=== PATIENT | female | born 1955 | race Caucasian/White ===

== ENCOUNTER 2023-06-16 08:10 | Day surgery (SDC) | payer MEDICARE ==
[~2023-06-16 08:10] MED LIST: Sodium Chloride 0.9% 10 ML Syringe FLUSH PRN
== END 2023-06-16 09:42 | disposition home or self-care (01) ==
LOC: JP.SDS 08:10
PROVIDERS: ATTEND Ophthalmology
DX: H26.9 Unspecified cataract (principal); I65.23 Occlusion and stenosis of bilateral carotid arteries; F17.200 Nicotine dependence, unspecified, uncomplicated; Z85.3 Personal history of malignant neoplasm of breast; Z88.5 Allergy status to narcotic agent
CPT/HCPCS: 66984; J3490

== ENCOUNTER 2023-06-30 08:18 | Day surgery (SDC) | payer MEDICARE ==
[2023-06-30] MEDS ORDERED: Sodium Chloride 0.9% 10 ML Syringe FLUSH PRN (09:30)
== END 2023-06-30 09:57 | disposition home or self-care (01) ==
LOC: JP.SDS 08:18
PROVIDERS: ATTEND Ophthalmology
DX: H26.9 Unspecified cataract (principal)
CPT/HCPCS: 66984; V2632

== ENCOUNTER 2024-10-09 16:32 | Emergency (ER) | payer OTHER, MEDICARE | END 2024-10-09 17:22 | disposition home or self-care (01) | LOC: JP.ED 16:32 | DX: R55 Syncope and collapse (principal); S00.03XA Contusion of scalp, initial encounter; S30.0XXA Contusion of lower back and pelvis, initial encounter; Z88.5 Allergy status to narcotic agent; Z79.899 Other long term (current) drug therapy; W01.198A Fall on same level from slipping, tripping and stumbling with subsequent striking against other object, initial encounter; Y93.89 Activity, other specified; Y99.0 Civilian activity done for income or pay | CPT/HCPCS: 99283 ==